=== PATIENT | female | born 1970 | race Caucasian/White ===

== ENCOUNTER 2021-01-17 16:29 | Emergency (ER) | payer OTHER, MEDICAID, SELFPAY ==
[2021-01-17 16:31] VITALS: BP 147/86; PULSE 115; RESP 20; TEMP 36.7; O2SAT 96
--- NOTE | 2021-01-17 16:35 | DI.RAD.S_ITS ---
PROCEDURE: XR KNEE RT 3V INDICATIONS: fall TECHNIQUE: 3 views of the knee were acquired. COMPARISON: [facility], CR, XR LUMBAR SPINE 2-3V, 01/17/2021, 16:38. FINDINGS: Bones: No fractures or dislocations. No suspicious bony lesions. Age-appropriate bony degenerative changes are seen. Soft tissues: No joint effusion. No suspicious soft tissue calcifications. IMPRESSION: No acute plain film abnormality is seen. If it would be helpful for clinical management decision making, please consider a dedicated, scheduled knee MRI for further evaluation (assuming that there is no contraindication). Dictated by: Dontrell Lobato M.D. on 01/17/2021 at 15:58 Approved by: Dontrell Lobato M.D. on 01/17/2021 at 15:58
--- NOTE | 2021-01-17 16:35 | DI.RAD.S_ITS ---
PROCEDURE: XR LUMBAR SPINE 2-3V INDICATIONS: fall TECHNIQUE: 3 views of the lumbar spine were acquired. COMPARISON: [facility], [facility]ERYL, XR KNEE RT 3V, 01/17/2021, 16:38. [facility], [facility]ERYL, L-SPINE 2-3 VIEWS, 06/26/2013, 13:14. FINDINGS: Bones: 5 [id number] vertebrae are present. No vertebral body compression fractures. No suspicious bony lesions. Grade 1 L5-S1 anterolisthesis is again seen, with associated pars defects. Mild disc space narrowing is seen at L5-S1. The disc heights otherwise appear well-preserved. Lower lumbar spine facet arthropathy is seen. Soft tissues: Overlying bowel gas pattern is normal. No suspicious soft tissue calcifications. IMPRESSION: No acute fracture is seen by plain film. Focal L5-S1 degenerative change is again seen, with associated grade 1 anterolisthesis and bilateral pars defects. These findings are similar to 2013. Dictated by: Dontrell Lobato M.D. on 01/17/2021 at 15:56 Approved by: Dontrell Lobato M.D. on 01/17/2021 at 15:58
[2021-01-17] MEDS: HYDROCODONE/ACET 5/325 TABLET 1 TAB PO (20:08)
[2021-01-17] MEDS: KETOROLAC 30 MG/ML VIAL IM (20:09)
[2021-01-17] MEDS: LIDOCAINE PATCH 1 EACH ADH..PATCH TOP (20:09)
--- NOTE | 2021-01-17 20:55 | ED_ITS ---
HPI - Back Pain/Injury <VIVIENNE Perez - Last Filed: 01/18/21 00:09> General Chief Complaint: Back Pain/Injury Stated Complaint: FELL LANDED HARD ON BACK AND RIGHT KNEE Time Seen by Provider: 01/17/21 19:43 Source: patient Mode of arrival: Ambulatory Limitations: no limitations History of Present Illness HPI Narrative: This is a 50 year female, nonsmoker, has past medical history s ignificant for rheumatoid arthritis, degenerate joint disease, stenosis of spine presents to ED with a friend with chief complain of right-sided lumbar back pain and buttock pain with right knee pain after she sustained a fall. Patient reports fell off 2nd step of front porch stair when she was carrying a dog 4 days ago. She lost balance and left footing and landed on right low back and buttock on lawn and hit her head. She denies loss of consciousness, mid cervical tenderness pain, tingling/numbness/weakness to upper extremities. She also reports right knee pain from this fall but not sure the mechanism of injury whether she had rotated her knee but thinks hit the affected knee onto plant pot. She is ambulatory slight limping gait. She takes Peralta up to 3 times a day daily due to chronic arthritis ache and back pain. Patient reports pain as 9/10 which worsened with any movements her back. Patient also takes methocarbamol 2 to 3 times a day as needed for discomfort. Patient is not currently on blood thinner. Related Data Previous Rx's Medication Instructions Recorded lidocaine 1 patch TOPICAL DAILY PRN #30 ea 01/17/21 Allergies Allergy/AdvReac Type Severity Reaction Status Date / Time Penicillins Allergy Intermediate Upset Verified 01/17/21 19:58 stomach, rash Review of Systems <VIVIENNE Perez - Last Filed: 01/18/21 00:09> Review of Systems Narrative: General: Denies fever, chills, fatigue, malaise, sweats. Respiratory: Denies dyspnea, cough, wheezing, hemoptysis, sputum. Cardiovascular: Denies chest pain, palpitations, orthopnea, edema. Gastrointestinal: Denies nausea, vomiting, abdominal pain, diarrhea, constipation, melena. : Denies dysuria, frequency, incontinence, hematuria, urinary retention. Musculoskeletal: See HPI Skin: Denies rash, skin lesions, or other. Neurologic: Denies weakness, headache, numbness, change in speech, confusion, seizures, incoordination. Patient History <Johan BrooksVIVIENNE Bahena - Last Filed: 01/18/21 00:09> Medical History DJD (degenerative joint disease), thoracolumbar Rheumatoid arthritis Spinal stenosis, multiple sites in spine Social History Smoking Status: Never smoker alcohol intake: never substance use type: does not use Smoking Status: Never smoker Exam <VIVIENNE Perez - Last Filed: 01/18/21 00:09> Narrative Exam Narrative: GEN: Alert, oriented x 3, well appearing and nourished, and in no acute distress. Head: Normal cephalic, atraumatic. No scalp or temporal tenderness, palpable mass or rash. EYES: Pupils are equal, round, and reactive to light and accommodation. Extraocular muscles are intact bilaterally. There is no subconjunctival hemorrhage, exudate and sclera non-icteric. ENT: Hearing grossly intact. Airway patent. Neck: Trachea in midline. No JVD, non-tender without lymphadenopathy. No masses or thyroid megaly. Supple, non-tender and no meningeal signs. CARDIAC: Normal regular rate and rhythm without murmurs, gallops, or rubs. No chest wall tenderness. No peripheral edema, cyanosis or pallor. Capillary refill is less than 2 seconds. RESPIRATORY: Lungs are clear to auscultate bilaterally. No cough, wheezes, rales, or rhonchi. No stridor, respiratory distress, increase work of breathing, or accessary muscle used. ABD: Abdomen soft, nontender and non-distended. No guarding or rebound tenderness to palpate. Bowel sounds are normal in all 4 quadrants. There is no palpable masses or organomegaly. EXT: Able to flex and extend bilateral knees with mild discomfort. No deformity or swelling to right knee. Distal pulse and sensation intact in right foot. SKIN: Warm, dry, normal color for patient. No erythema, lesions or rash over visible areas. BACK: no deformity or crepitance. Right spinous tenderness in lumbar region. No rash, swelling. No flank tenderness. NEUROLOGICAL: Alert and oriented to place, time and person. Sensation and motor function intact bilaterally. No facial droops, dysphasia. PSYCHIATRIC: Good judgement and reason, without hallucinations, abnormal affect or abnormal behaviors during the examination. Patient is not suicidal. Initial Vital Signs Initial Vital Signs: Vital Signs Temperature 98.0 F 01/17/21 16:31 Pulse Rate 115 H 01/17/21 16:31 Respiratory Rate 20 01/17/21 16:31 Blood Pressure 147/86 H 01/17/21 16:31 Pulse Oximetry 96 01/17/21 16:31 <Devora Garcia DO - Last Filed: 01/18/21 02:33> Initial Vital Signs Initial Vital Signs: Vital Signs Temperature 98.0 F 01/17/21 16:31 Pulse Rate 115 H 01/17/21 16:31 Respiratory Rate 20 01/17/21 16:31 Blood Pressure 147/86 H 01/17/21 16:31 Pulse Oximetry 96 01/17/21 16:31 Scores <VIVIENNE Perez - Last Filed: 01/18/21 00:09> French CT Head Rule Age <16 years old: No Patient on blood thinners: No Seizure after injury: No Exclusion: Patient NOT Excluded, Proceed to next steps GCS < 15 at 2 hr post trauma: No Suspected open or depressed skull fracture: No Any sign of basilar skull fracture (hemotympanum, raccoon eyes, Burgess's sign, CSF alex-/rhinorrhea): No Two or more episodes of vomiting: No Age greater or equal to 65 years: No Retrograde amnesia to the event greater or equal to 30 min: No Dangerous Mechanism (pedestrian vs. mv, occupant ejected from mv, fall from >3 ft or > 5 stairs): No Recommendation: CT unnecessary GCS [place] coma scale eye opening: Spontaneous Siomara coma scale verbal response: Orientated Siomara coma scale motor response: Obey commands [place] coma scale total score: 15 Nexus Score for C-Spine Focal Neurologic deficit present: No Midline spinal tenderness present: No Altered level of conciousness present: No Intoxication present: No Distracting Injury Present: No Nexus Criteria for C-spine: 0 Course <VIVIENNE Perez - Last Filed: 01/18/21 00:09> Orders Ordered: Discontinued Medications Hydrocodone Bitart/Acetaminophen (Hydrocodone/Acet 5/325 Tablet) 1 tab PO NOW ONE Stop: 01/17/21 20:00 Last Admin: 01/17/21 20:08 Dose: 1 tab Documented by: SARA Ketorolac Tromethamine (Ketorolac 30 Mg/Ml Vial) 30 mg IM NOW ONE Stop: 01/17/21 19:59 Last Admin: 01/17/21 20:09 Dose: 30 mg Documented by: SARA Lidocaine (Lidocaine Patch 1 Each Adh..Patch) 1 each TOP NOW ONE Stop: 01/17/21 19:59 Last Admin: 01/17/21 20:09 Dose: 1 each Documented by: SARA Vital Signs Vital signs: Vital Signs - 8 hr 01/17/21 21:10 Pulse Rate 100 H Blood Pressure 114/68 Pulse Oximetry 100 <Devora Garcia DO - Last Filed: 01/18/21 02:33> Orders Ordered: Discontinued Medications Hydrocodone Bitart/Acetaminophen (Hydrocodone/Acet 5/325 Tablet) 1 tab PO NOW ONE Stop: 01/17/21 20:00 Last Admin: 01/17/21 20:08 Dose: 1 tab Documented by: SARA Ketorolac Tromethamine (Ketorolac 30 Mg/Ml Vial) 30 mg IM NOW ONE Stop: 01/17/21 19:59 Last Admin: 01/17/21 20:09 Dose: 30 mg Documented by: SARA Lidocaine (Lidocaine Patch 1 Each Adh..Patch) 1 each TOP NOW ONE Stop: 01/17/21 19:59 Last Admin: 01/17/21 20:09 Dose: 1 each Documented by: SARA Vital Signs Vital signs: Vital Signs - 8 hr 01/17/21 21:10 Pulse Rate 100 H Blood Pressure 114/68 Pulse Oximetry 100 MDM - Back Pain/Injury <VIVIENNE Perez - Last Filed: 01/18/21 00:09> Differential Diagnosis Differential diagnosis: Likely strain of lumbar region and other (Lumbar fracture, lumbar contusion, knee strain, knee contusion) Medical Records Attestation: I reviewed the patient's medical records. Imaging Data XR-Knee RT: Radiologist's Impression: [address] [id number] ReportSigned Patient: Zora Chun [facility]#: [id number]: 1970Acct:[id number]/Sex: 50 / FDate of Service: 01/17/21Lo: EDAccession Number: [id number] Procedure: XR knee RT 3V Ordering Provider: Bell Tapia D.O. PROCEDURE: XR KNEE RT 3V INDICATIONS: fall TECHNIQUE: 3 views of the knee were acquired. COMPARISON: [facility], , XR LUMBAR SPINE 2-3V, 01/17/2021, 16:38. FINDINGS: Bones: No fractures or dislocations. No suspicious bony lesions. Age- appropriate bony degenerative changes are seen. Soft tissues: No joint effusion. No suspicious soft tissue calcifications. IMPRESSION: No acute plain film abnormality is seen. If it would be helpful for clinical management decision making, please consider a dedicated, scheduled knee MRI for further evaluation (assuming that there is no contraindication). Dictated by: Dontrell Lobato M.D. on 01/17/2021 at 15:58 Approved by: Dontrell Lobato M.D. on 01/17/2021 at 15:58 XR-Lumbar: Radiologist's Impression: [address] [id number] ReportSigned Patient: Zora Chun [facility]#: [id number]: 1970Acct:[id number]/Sex: 50 / FDate of Service: 01/17/21Lo: EDAccession Number: [id number] Procedure: XR lumbar spine 2-3V Ordering Provider: Bell Tapia D.O. PROCEDURE: XR LUMBAR SPINE 2-3V INDICATIONS: fall TECHNIQUE: 3 views of the lumbar spine were acquired. COMPARISON: [facility], , XR KNEE RT 3V, 01/17/2021, 16:38. [facility], , L-SPINE 2-3 VIEWS, 06/26/2013, 13:14. FINDINGS: Bones: 5 [id number] vertebrae are present. No vertebral body compression fractures. No suspicious bony lesions. Grade 1 L5-S1 anterolisthesis is again seen, with associated pars defects. Mild disc space narrowing is seen at L5-S1. The disc heights otherwise appear well- preserved. Lower lumbar spine facet arthropathy is seen. Soft tissues: Overlying bowel gas pattern is normal. No suspicious soft tissue calcifications. IMPRESSION: No acute fracture is seen by plain film. Focal L5-S1 degenerative change is again seen, with associated grade 1 anterolisthesis and bilateral pars defects. These findings are similar to 2013. Dictated by: Dontrell Lobato M.D. on 01/17/2021 at 15:56 Approved by: Dontrell Lobato M.D. on 01/17/2021 at 15:58 [facility] Narrative Medical decision making narrative: This is a 50 year female who presents to ED after she fell of 2nd steps of porch stair and landed on right-sided low back and buttock grass 4 days ago with chief complain of right knee and right-sided low back pain. Patient is not on blood thinner and had no loss of consciousness. Denied mid cervical tenderness and no focal neurological deficit appreciated. GCS 15. French head CT score indicating not necessary for head CT and nexus C spine score is 0. Lumbar x-ray and right knee x-ray without acute findings. Patient was medicated with lidocaine patch, Toradol 30mg IM injection, 1 tab of Peralta patient takes regularly. Patient states will have to call his PCP to get her medication refilled. Patient advised to add Tylenol 650 mg up to 3 times a day as needed for pain and and NSAID to use with food to decrease inflammation and pain. Patient discharged to home lidocaine patch and advised continue to use metacarpal as needed. Patient offered Deejay wrap on right knee but states she has a knee brace at home she can use. Return precautions discussed with patient and advised to follow up with primary care physician if pain persists further imaging test, and a referral to physical therapist as needed. Patient verbalized understanding and in agreement with the treatment plan and ambulatory about the ED in stable gait. Discharge Plan Departure Patient Disposition: Home Clinical Impression: Fall (on) (from) other stairs and steps, initial encounter Strain of lumbar region Qualifiers: Encounter type: initial encounter Qualified Code(s): S39.012A - Strain of muscle, fascia and tendon of lower back, initial encounter Acute knee pain Qualifiers: Laterality: right Qualified Code(s): M25.561 - Pain in right knee Instructions: DI for Low Back Pain, DI for Knee Pain Activity Restrictions/Additional Instructions: You have been diagnosed with [right side low back pain, and right knee pain from a fall stairs]. What to do: *Take your medications as directed. Please take [id number] Tylenol and Motrin as needed for pain and inflammation. Tylenol 650 mg up to 3 times a day as needed for pain. Ibuprofen 400-600 mg up to 3 times a day as needed for pain and inflammation, please take it with food. Please use your Peralta as needed for severe pain. Please use lidocaine patch on affected site for pain as needed. Lidocaine patch stays on for 12 hours and off for 12 hours. Rest your back next couple of days and as soon as acute pain improves, do gentle stretching. Lidocaine patch has been transmitted to [facility]. *Follow up with your primary care provider in 2-3 days, call for an appointment. Let them know you were seen in the ED and that we asked you to be seen in follow up. If your pain persists, you may require repeating or imaging test. *Return to ED if you have any new, worsening, or concerning symptoms, such as [chest pain, breathing difficulty, unable to tolerate fluids, near syncope, numbness tingling to groin, lower legs, incontinence for stool or bladder function, fever, rash on her back or any acute concerns]. Prescriptions: New lidocaine 5 % adhesive patch,medicated 1 patch topical DAILY PRN (Reason: pain) Qty: 30 RF: 0 Referrals: Pawan Bai DO [Non-Staff] - <Devora Garcia DO - Last Filed: 01/18/21 02:33> Cosign ED Attending Radhamesature Attestation: I was immediately available in the department for consultation. Documentation has been reviewed. I agree with assessment and plan.
[2021-01-17 21:10] VITALS: BP 114/68; PULSE 100; O2SAT 100
== END 2021-01-17 23:55 | disposition home or self-care (01) ==
PROVIDERS: Emergency Provider Nurse Practitioner Family
DX: S39.012A Strain of muscle, fascia and tendon of lower back, initial encounter (principal); M25.561 Pain in right knee; W10.8XXA Fall (on) (from) other stairs and steps, initial encounter
CPT/HCPCS: 72100; 73562; 96372; 99283; J1885